=== PATIENT | male | born 1975 | race Caucasian/White ===

== ENCOUNTER 2017-11-12 10:38 | Emergency (ER) | payer OTHER, BC ==
[2017-11-12 11:05] VITALS: BP 131/71
[2017-11-12] MEDS ORDERED: Sodium Chloride 0.9% 2.5 ML Syringe FLUSH PRN (11:26)
[2017-11-12] MEDS ORDERED: Sodium Chloride 0.9% 10 ML Syringe FLUSH PRN (11:26)
--- NOTE | 2017-11-12 11:26 | EDM.PDOC ---
ED HPI GENERAL MEDICAL PROBLEM - General Chief Complaint: Skin Complaint Stated Complaint: PATIENT BITTEN BY SOMETHING. Time Seen by Provider: 11/12/17 10:45 Source of Information: Reports: Patient History Limitations: Reports: No Limitations - History of Present Illness INITIAL COMMENTS - FREE TEXT/NARRATIVE: HISTORY AND PHYSICAL: History of present illness: [Jono is a 42-year male who presents to the ER today for right groin pain and a bug bite on his right leg. He states that the bite occurred about 1 month ago while he was in [facility] for 10 days on a mission trip. Since then, the bite has persisted and has had minimal drainage daily. He did not see what had bit him and states he had several other bites that have since resolved. He says the bite is on his right lower leg and is not painful. He states that yesterday he began to have right groin pain that he rates a 9/10 pain, burning, and constant and is worried that it is related to the bite. He says he also feels that he is having fever and chills off and on since last night and feels exhausted this morning. While in [facility], he denies exposure to any other blood products. He denies any sexual partners other than his . He denies weight changes, blurry vision, cough, sore throat, dizziness, abdominal pain, diarrhea, nausea, vomiting, headache, or syncope. Furthermore, he denies trauma to his hip or groin. He denies numbness, burning, tingling, or muscle weakness of the right leg. ] Review of systems: As per history of present illness and below otherwise all systems reviewed and negative. Past medical history: As per history of present illness and as reviewed below otherwise noncontributory. Surgical history: As per history of present illness and as reviewed below otherwise noncontributory. Social history: No reported history of drug or alcohol abuse. Family history: As per history of present illness and as reviewed below otherwise noncontributory. Physical exam: General: Patient lying comfortable in no acute distress HEENT: Conjuctiva injected bilaterally. Atraumatic, normocephalic, pupils reactive, negative for conjunctival pallor or scleral icterus, mucous membranes moist, throat clear, neck supple, nontender, trachea midline. Lungs: Clear to auscultation, breath sounds equal bilaterally, chest nontender. Heart: S1S2, regular, negative for clicks, rubs, Abdomen: Soft, nondistended, nontender. Negative for costovertebral tenderness. Pelvis: Stable nontender. Genitourinary: Skin intact, no lesions noted. No testicular swelling. Mild tenderness to palpation of the right testicle. No erythema. Normal cremaster reflex. Rectal: Deferred. Skin: There is a a 0.5cm lesion on the right medial lower leg. There is some mild erythema and warmth of the anterior leg. Extremities: Tender to palpation of the right groin, no LAD noted. Pain with flexion of the right hip. CMS intact distally. Atraumatic, negative for cords or calf pain. Neurovascular unremarkable. Neuro: Awake, alert, oriented. Cranial nerves II through XII unremarkable. Cerebellum unremarkable. Motor and sensory unremarkable throughout. Exam nonfocal. Notes: Diagnostics: [CBC, CMP, peripheral smear, UA, urine gonorrhea/chlamydia Scrotal duplex US X-ray right hip] Therapeutics: [IM ceftriaxone 250mg 1g azithromycin Bactrim DS BID x 10 days] Impression: [Epididymitis] Plan: [#1 Take antibiotic as directed #2 Follow up with PCP #3 Return to ED as needed as discussed] Definitive disposition and diagnosis as appropriate pending reevaluation and review of above. right groin Pain Score (Numeric/FACES): 9 - Related Data Allergies Allergy/AdvReac Type Severity Reaction Status Date / Time No Known Allergies Allergy Verified 11/12/17 10:58 Home Meds: Home Meds . [No Known Home Meds] 11/12/17 [History] Past Medical History Other Respiratory History: respiratory infection - Infectious Disease History Infectious Disease History: Reports: Chicken Pox - Past Surgical History GI Surgical History: Reports: Colonoscopy Other Male Surgeries/Procedures: vasectomy Musculoskeletal Surgical History: Reports: Shoulder Surgery Other Musculoskeletal Surgeries/Procedures:: knee surgery Social & Family History - Family History Family Medical History: Noncontributory - Tobacco Use Smoking Status *Q: Never Smoker - Recreational Drug Use Recreational Drug Use: No ED ROS GENERAL - Review of Systems Review Of Systems: ROS reveals no pertinent complaints other than HPI. ED EXAM, SKIN/RASH Exam: See Below (see dictation) Course - Vital Signs Last Recorded V/S: Last Vital Signs Temp 37.9 C 11/12/17 10:58 Pulse 95 11/12/17 10:58 Resp 20 11/12/17 10:58 BP 131/71 11/12/17 10:58 Pulse Ox 99 11/12/17 10:58 - Orders/Labs/Meds Orders: Active Orders 24 hr Category Date Time Status Hip Min 2V or 3V Rt [CR] Stat Exams 11/12/17 11:20 Taken Scrotal Duplex Ltd [US] Stat Exams 11/12/17 11:08 Taken Scrotum and Contents [US] Routine Exams 11/12/17 Taken URINALYSIS W/MICROSCOPIC [UA W/MICROSCOPIC] [URIN] Stat Lab 11/12/17 11:05 Ordered Sodium Chloride 0.9% [Saline Flush] Med 11/12/17 11:26 Active 10 ml FLUSH ASDIRECTED PRN Sodium Chloride 0.9% [Saline Flush] Med 11/12/17 11:26 Active 2.5 ml FLUSH ASDIRECTED PRN Saline Lock Insert [OM.PC] Stat Oth 11/12/17 11:26 Ordered Medication Orders Sodium Chloride (Saline Flush) 10 ml FLUSH ASDIRECTED PRN PRN Reason: Keep Vein Open Sodium Chloride (Saline Flush) 2.5 ml FLUSH ASDIRECTED PRN PRN Reason: Keep Vein Open Labs: Laboratory Tests 11/12/17 11/12/17 11/12/17 Range/Units 11:05 11:30 11:30 WBC 12.31 H (4.0-11.0) K/uL RBC 5.49 (4.50-5.90) M/uL Hgb 16.4 (13.0-17.0) g/dL Hct 45.6 (38.0-50.0) % MCV 83.1 (80.0-98.0) fL MCH 29.9 (27.0-32.0) pg MCHC 36.0 (31.0-37.0) g/dL RDW Std Deviation 39.1 (28.0-62.0) fl RDW Coeff of [place] 13 (11.0-15.0) % Plt Count 177 (150-400) K/uL MPV 9.80 (7.40-12.00) fL Neut % (Auto) 90.8 H (48.0-80.0) % Lymph % (Auto) 6.3 L (16.0-40.0) % [place] % (Auto) 2.6 (0.0-15.0) % Eos % (Auto) 0.2 (0.0-7.0) % Baso % (Auto) 0.1 (0.0-1.5) % Neut # (Auto) 11.2 H (1.4-5.7) K/uL Lymph # (Auto) 0.8 (0.6-2.4) K/uL [place] # (Auto) 0.3 (0.0-0.8) K/uL Eos # (Auto) 0.0 (0.0-0.7) K/uL Baso # (Auto) 0.0 (0.0-0.1) K/uL Nucleated RBC % 0.0 /100WBC Nucleated RBCs # 0 K/uL Smear Path Review Sodium 139 (136-148) mmol/L Potassium 3.9 (3.5-5.1) mmol/L Chloride 104 (98-107) mmol/L Carbon Dioxide 30.4 (21.0-32.0) mmol/L BUN 12 (7.0-18.0) mg/dL Creatinine 1.2 (0.8-1.3) mg/dL Est Cr Clr Drug Dosing 81.01 mL/min Estimated GFR (MDRD) > 60.0 ml/min Glucose 103 (74-106) mg/dL Calcium 8.5 (8.5-10.1) mg/dL Total Bilirubin 0.6 (0.2-1.0) mg/dL AST 19 (15-37) IU/L ALT 38 (14-63) IU/L Alkaline Phosphatase 67 (46-116) U/L Total Protein 7.3 (6.4-8.2) g/dL Albumin 4.0 (3.4-5.0) g/dL Globulin 3.3 (2.0-3.5) g/dL Albumin/Globulin Ratio 1.2 L (1.3-2.8) Urine Color YELLOW Urine Appearance CLEAR Urine pH 5.5 (5.0-8.0) Ur Specific [place] >= 1.030 (1.001-1.035) Urine Protein NEGATIVE (NEGATIVE) mg/dL Urine Glucose (UA) NEGATIVE (NEGATIVE) mg/dL Urine Ketones NEGATIVE (NEGATIVE) mg/dL Urine Occult Blood NEGATIVE (NEGATIVE) Urine Nitrite NEGATIVE (NEGATIVE) Urine Bilirubin NEGATIVE (NEGATIVE) Urine Urobilinogen 0.2 (<2.0) EU/dL Ur Leukocyte Esterase NEGATIVE (NEGATIVE) Urine RBC 0-1 (0-2/HPF) Urine WBC 0-2 (0-5/HPF) Ur Epithelial Cells RARE (NONE-FEW) Urine Bacteria RARE (NEGATIVE) 11/12/17 Range/Units 11:30 WBC (4.0-11.0) K/uL RBC (4.50-5.90) M/uL Hgb (13.0-17.0) g/dL Hct (38.0-50.0) % MCV (80.0-98.0) fL MCH (27.0-32.0) pg MCHC (31.0-37.0) g/dL RDW Std Deviation (28.0-62.0) fl RDW Coeff of [place] (11.0-15.0) % Plt Count (150-400) K/uL MPV (7.40-12.00) fL Neut % (Auto) (48.0-80.0) % Lymph % (Auto) (16.0-40.0) % [place] % (Auto) (0.0-15.0) % Eos % (Auto) (0.0-7.0) % Baso % (Auto) (0.0-1.5) % Neut # (Auto) (1.4-5.7) K/uL Lymph # (Auto) (0.6-2.4) K/uL [place] # (Auto) (0.0-0.8) K/uL Eos # (Auto) (0.0-0.7) K/uL Baso # (Auto) (0.0-0.1) K/uL Nucleated RBC % /100WBC Nucleated RBCs # K/uL Smear Path Review SENT TO PATHOLOGY Sodium (136-148) mmol/L Potassium (3.5-5.1) mmol/L Chloride (98-107) mmol/L Carbon Dioxide (21.0-32.0) mmol/L BUN (7.0-18.0) mg/dL Creatinine (0.8-1.3) mg/dL Est Cr Clr Drug Dosing mL/min Estimated GFR (MDRD) ml/min Glucose (74-106) mg/dL Calcium (8.5-10.1) mg/dL Total Bilirubin (0.2-1.0) mg/dL AST (15-37) IU/L ALT (14-63) IU/L Alkaline Phosphatase (46-116) U/L Total Protein (6.4-8.2) g/dL Albumin (3.4-5.0) g/dL Globulin (2.0-3.5) g/dL Albumin/Globulin Ratio (1.3-2.8) Urine Color Urine Appearance Urine pH (5.0-8.0) Ur Specific [place] (1.001-1.035) Urine Protein (NEGATIVE) mg/dL Urine Glucose (UA) (NEGATIVE) mg/dL Urine Ketones (NEGATIVE) mg/dL Urine Occult Blood (NEGATIVE) Urine Nitrite (NEGATIVE) Urine Bilirubin (NEGATIVE) Urine Urobilinogen (<2.0) EU/dL Ur Leukocyte Esterase (NEGATIVE) Urine RBC (0-2/HPF) Urine WBC (0-5/HPF) Ur Epithelial Cells (NONE-FEW) Urine Bacteria (NEGATIVE) Meds: Medications Generic Name Dose Route Start Last Admin Trade Name Freq PRN Reason Stop Dose Admin Sodium Chloride 10 ml 11/12/17 11:26 Saline Flush FLUSH ASDIRECTED PRN Keep Vein Open Sodium Chloride 2.5 ml 11/12/17 11:26 Saline Flush FLUSH ASDIRECTED PRN Keep Vein Open Discontinued Medications Generic Name Dose Route Start Last Admin Trade Name Freq PRN Reason Stop Dose Admin Azithromycin 1,000 mg 11/12/17 12:36 Zithromax PO 11/12/17 12:37 ONETIME ONE Ceftriaxone Sodium 250 mg/ 1 mls @ 1 mls/sec 11/12/17 12:35 Lidocaine HCl IM 11/12/17 12:36 ONETIME ONE Departure - Departure Time of Disposition: 13:20 Disposition: Home, Self-Care 01 Condition: Good Clinical Impression: Epididymitis - Discharge Information Instructions: Insect Bite, Adult, [id number] Referrals: Oren Malik MD [Primary Care Provider] - Forms: ED Department Discharge Additional Instructions: The following information is given to patients seen in the emergency department who are being discharged to home. This information is to outline your options for follow-up care. We provide all patients seen in our emergency department with a follow-up referral. The need for follow-up, as well as the timing and circumstances, are variable depending upon the specifics of your emergency department visit. If you don't have a primary care physician on staff, we will provide you with a referral. We always advise you to contact your personal physician following an emergency department visit to inform them of the circumstance of the visit and for follow-up with them and/or the need for any referrals to a consulting specialist. The emergency department will also refer you to a specialist when appropriate. This referral assures that you have the opportunity for follow-up care with a specialist. All of these measure are taken in an effort to provide you with optimal care, which includes your follow-up. Under all circumstances we always encourage you to contact your private physician who remains a resource for coordinating your care. When calling for follow-up care, please make the office aware that this follow-up is from your recent emergency room visit. If for any reason you are refused follow-up, please contact the [facility] Emergency Department at and asked to speak to the emergency department charge nurse. [facility] [address] [place] [address] #1 Take antibiotic as directed #2 Follow up with PCP #3 Return to ED as needed as discussed - My Orders Last 24 Hours: My Active Orders 11/12/17 11:05 URINALYSIS W/MICROSCOPIC [UA W/MICROSCOPIC] [URIN] Stat 11/12/17 11:08 Scrotal Duplex Ltd [US] Stat 11/12/17 11:20 Hip Min 2V or 3V Rt [CR] Stat 11/12/17 11:26 Sodium Chloride 0.9% [Saline Flush] 10 ml FLUSH ASDIRECTED PRN Sodium Chloride 0.9% [Saline Flush] 2.5 ml FLUSH ASDIRECTED PRN Saline Lock Insert [OM.PC] Stat - Assessment/Plan Last 24 Hours: My Active Orders 11/12/17 11:05 URINALYSIS W/MICROSCOPIC [UA W/MICROSCOPIC] [URIN] Stat 11/12/17 11:08 Scrotal Duplex Ltd [US] Stat 11/12/17 11:20 Hip Min 2V or 3V Rt [CR] Stat 11/12/17 11:26 Sodium Chloride 0.9% [Saline Flush] 10 ml FLUSH ASDIRECTED PRN Sodium Chloride 0.9% [Saline Flush] 2.5 ml FLUSH ASDIRECTED PRN Saline Lock Insert [OM.PC] Stat
[2017-11-12 11:59] LABS: CHLORIDE,CL 104 mmol/L (98-107); SODIUM,NA 139 mmol/L (136-148)
[2017-11-12] MEDS ORDERED: cefTRIAXone 250 MG in Lidocaine 1% 1 ML IM ONE (12:35)
[2017-11-12] MEDS ORDERED: Azithromycin 250 MG Tab PO ONE (12:36)
--- NOTE | 2017-11-13 10:06 | CR ---
EXAM DATE: 11/12/17 PATIENT'S AGE: 42 Patient: SUSAN BHAKTA Facility: [place], [place] Site . Site : 1975 Study: XRay Pelvis Right HIP [id number] 12:03:54 PM Ordering Physician: Doctor Velasco Final Report: HISTORY: Right groin pain 2 views of the right hip. FINDINGS: Normal alignment. No fractures. No acute osseous abnormalities. Dictated by Helen Daniels MD @ Nov 12 2017 12:11PM (Electronic Signature) Report Signed by Proxy. ISRAEL
--- NOTE | 2017-11-13 10:08 | US ---
EXAM DATE: 11/12/17 PATIENT'S AGE: 42 Patient: SUSAN BHAKTA Facility: [place], [place] Site . Site : 1975 Study: US Testicle [id number]/4/2018 12:41:48 PM Ordering Physician: Doctor Velasco Final Report: Indication: Groin pain Technique: Ultrasound of the scrotum and contents. Sonographic walker-scale images were obtained with spectral and color Doppler waveform and spectral waveform analysis of the testicles. Comparison: None Findings: Bother testicles are normal in size and echotexture. No masses. No suspicious calcifications. Normal arterial and venous color Doppler blood flow and spectral waveforms are present in both testicles. Epididymis: Unremarkable bilaterally. Normal blood flow. Other: There are trace hydroceles. No sign of varicocele. Scrotal wall is normal. Multiple minimally enlarged lymph nodes are present in the right inguinal region. Impression: Mild right inguinal lymphadenopathy. Trace bilateral hydroceles. Otherwise unremarkable ultrasound of the scrotum and contents. No sign of torsion. Dictated by Sigifredo Ro MD @ Nov 12 2017 12:58PM (Electronic Signature) Report Signed by Proxy. ISRAEL
--- NOTE | 2017-11-13 10:09 | US ---
EXAM DATE: 11/12/17 PATIENT'S AGE: 42 Patient: SUSAN BHAKTA Facility: [place], [place] Site . Site : 1975 Study: US Testicle [id number]/4/2018 12:41:48 PM Ordering Physician: Doctor Velasco Final Report: Indication: Groin pain Technique: Ultrasound of the scrotum and contents. Sonographic walker-scale images were obtained with spectral and color Doppler waveform and spectral waveform analysis of the testicles. Comparison: None Findings: Bother testicles are normal in size and echotexture. No masses. No suspicious calcifications. Normal arterial and venous color Doppler blood flow and spectral waveforms are present in both testicles. Epididymis: Unremarkable bilaterally. Normal blood flow. Other: There are trace hydroceles. No sign of varicocele. Scrotal wall is normal. Multiple minimally enlarged lymph nodes are present in the right inguinal region. Impression: Mild right inguinal lymphadenopathy. Trace bilateral hydroceles. Otherwise unremarkable ultrasound of the scrotum and contents. No sign of torsion. Dictated by Sigifredo Ro MD @ Nov 12 2017 12:58PM (Electronic Signature) Report Signed by Proxy. ISRAEL
== END 2017-11-12 13:37 | disposition home or self-care (01) ==
LOC: MW.ED 10:38
DX: N45.1 Epididymitis (principal)
CPT/HCPCS: 36415; 73502; 76870; 80053; 81001; 85025; 87491; 87591; 88104; 93976; 96372; 99284; A9270; J0696; J2001

== ENCOUNTER 2020-07-25 09:34 | Emergency (ER) | payer OTHER, BC ==
[2020-07-25 10:06] VITALS: BP 135/80; PULSE 81
[2020-07-25] MEDS ORDERED: Sodium Chloride 0.9% 1,000 ML IV STA (10:17)
[2020-07-25] MEDS ORDERED: Ketorolac 30 MG/ML SDV IVPUSH ONE (10:18)
[2020-07-25] MEDS ORDERED: Sodium Chloride 0.9% 2.5 ML Syringe FLUSH PRN (10:20)
[2020-07-25] MEDS ORDERED: Sodium Chloride 0.9% 10 ML Syringe FLUSH PRN (10:20)
--- NOTE | 2020-07-25 10:31 | EDM.PDOC ---
ED HPI GENERAL MEDICAL PROBLEM - General Chief Complaint: Back Pain or Injury Stated Complaint: LOWER BACK PAIN Time Seen by Provider: 07/25/20 10:10 Source of Information: Reports: Patient History Limitations: Reports: No Limitations - History of Present Illness INITIAL COMMENTS - FREE TEXT/NARRATIVE: HISTORY AND PHYSICAL: History of present illness: The patient is a 45-year-old male who presents to the ED with lower back pain, right CVA and flank pain, which started yesterday while he was getting dressed. He has been using heat and ice for pain relief. He states that his left foot felt numb. Denies any weakness of the right lower extremity. On Friday he went to the chiropractor, however, not receive relief after his treatment. He has used acetaminophen and Flexeril without pain relief. He has never experienced pain like this before. He required assistance getting out of bed and going to the bathroom this morning. Patient denies any fever, chills, headache, change in vision, syncope or near syncope. Denies any chest pain, back pain, shortness of breath or cough. Denies any abdominal pain, nausea, vomiting, diarrhea, constipation or dysuria. Has not noted any blood in urine or stool. Patient has been eating and drinking appropriately. Review of systems: As per history of present illness and below otherwise all systems reviewed and negative. Past medical history: As per history of present illness and as reviewed below otherwise noncontributory. Surgical history: As per history of present illness and as reviewed below otherwise noncontributo ry. Social history: See social history for further information Family history: As per history of present illness and as reviewed below otherwise noncontributory. Physical exam: General: Well developed and well nourished. Alert and orientated x 3. Nontoxic in appearance and in mild distress. Vital signs are stable and have been reviewed by me. Nursing notes were reviewed. HEENT: Atraumatic, normocephalic, pupils equal and reactive bilaterally, negative for conjunctival pallor or scleral icterus, mucous membranes moist, TMs normal bilaterally, throat clear, neck supple, nontender, trachea midline. No drooling or trismus noted. No meningeal signs. No hot potato voice noted. Lungs: Clear to auscultation bilaterally. No wheezes, rales, or rhonchi. Chest nontender. Normal work of breathing, no accessory muscles used. Heart: S1S2, regular rate and rhythm without overt murmur, gallops, or rubs. No JVD. No peripheral edema Abdomen: Soft, nondistended, nontender. Normoactive bowel sounds. Negative for masses. Right side costovertebral tenderness. Skin: Intact, warm, dry. No lesions or rashes noted. Hematologic: No petechiae or purpra. Mucosa appropriate color and normal nail bed color and refill. Extremities: Atraumatic, moves all extremities per self without difficulty or deficits, negative for cords or calf pain. Neurovascular unremarkable. Neuro: Awake, alert, oriented. Cranial nerves II through XII unremarkable. Cerebellum unremarkable. Motor unremarkable throughout. Right foot numbness. No weakness noted. Psychiatric: Mood and affect are appropriate. Normal thought process. Answering questions appropriately. Notes: *This patient was seen and evaluated during the 2019 SARS-CoV-2 novel coronavirus pandemic period. Community viral transmission is ongoing at time of this encounter and the emergency department is operating under pandemic response procedures. The patient presented with initial complaint of back pain, after examination noted CVA tenderness and right flank pain. Discussed treatment plan with patient and he is agreeable we will do labs, IV fluids, a CT, and Toradol for pain control. Patient's lab work is unremarkable. There is no blood noted in the urine. States he got mild relief from the Toradol. Awaiting CT results. I have talked with the patient about today's findings, in addition to providing specific details for plan of care. Reassessment at the time of disposition demonstrates that the patient is in no acute distress. The patient is stable for discharge, counseling was provided and we discussed in great detail signs and symptoms that would prompt them to return to the Emergency Department. Medication, follow up and supportive care measures were reviewed and discussed. Voices understanding and is agreeable to plan of care. Denies any further questions or concerns at this time. CT report per the Radiologist: Nothing seen which would explain the patient`s right flank pain. Normal appearance of the right urinary system and appendix. CT of the abdomen shows a tiny nonobstructive 1 millimeter calculus in the upper pole of the left kidney.CT of the pelvis shows mild sigmoid diverticulosis with no sign of diverticulitis. I will treat patient for his lower back muscle strain with Norflex and an NSAID. Diagnostics: UA, lipase, CBC, CMP, CT Therapeutics: IV fluids, Toradol Prescription: Norflex 100mg Impression: Muscle strain Plan: 1. You were evaluated today on an emergent basis. Your lab work was essentially negative. Your CT read Nothing seen which would explain the patient`s right flank pain. Normal appearance of the right urinary system and appendix. CT of the abdomen shows a tiny nonobstructive 1 millimeter calculus in the upper pole of the left kidney. Take the Norflex 1 every 12 hours. Continue with ice and heat for comfort. 2. You can alternate Tylenol and ibuprofen as needed for pain and fever management. 3. We encourage you to follow up with your primary care provider and/or recomm ended specialist in the next few days for re-evaluation and further care/management. 4. If your symptoms should worsen, new symptoms develop or any of the signs and symptoms we discussed should arise please return to the emergency room or call 911 (if needed). Definitive disposition and diagnosis as appropriate pending reevaluation and review of above. lower back, right buttock Pain Score (Numeric/FACES): 9 - Related Data Allergies Allergy/AdvReac Type Severity Reaction Status Date / Time No Known Allergies Allergy Verified 11/12/17 10:58 Home Meds: Home Meds Cyclobenzaprine [Flexeril] 1 tab PO TID PRN 07/25/20 [History] Orphenadrine [Norflex] 100 mg PO BID PRN 10 Days #20 tab 07/25/20 [Rx] Past Medical History Other Respiratory History: respiratory infection - Infectious Disease History Infectious Disease History: Reports: Chicken Pox - Past Surgical History GI Surgical History: Reports: Colonoscopy Other Male Surgeries/Procedures: vasectomy Musculoskeletal Surgical History: Reports: Shoulder Surgery Other Musculoskeletal Surgeries/Procedures:: knee surgery ACL, R shoulder Social & Family History - Family History Family Medical History: No Pertinent Family History - Tobacco Use Tobacco Use Status *Q: Never Tobacco User - Recreational Drug Use Recreational Drug Use: No ED ROS GENERAL - Review of Systems Review Of Systems: Comprehensive ROS is negative, except as noted in HPI. ED EXAM,LOWER BACK PAIN/INJURY - Physical Exam Exam: See Below (See dictation) Course - Vital Signs Last Recorded V/S: Last Vital Signs Temp 98 F 07/25/20 10:00 Pulse 81 07/25/20 10:00 Resp 18 07/25/20 10:00 BP 135/80 07/25/20 10:00 Pulse Ox 96 07/25/20 10:00 - Orders/Labs/Meds Orders: Active Orders 24 hr Category Date Time Status Sodium Chloride 0.9% [Saline Flush] Med 07/25/20 10:20 Active 10 ml FLUSH ASDIRECTED PRN Sodium Chloride 0.9% [Saline Flush] Med 07/25/20 10:20 Active 2.5 ml FLUSH ASDIRECTED PRN Saline Lock Insert [OM.PC] Stat Oth 07/25/20 10:20 Ordered Medication Orders Sodium Chloride (Sodium Chloride 0.9% 10 Ml Syringe) 10 ml FLUSH ASDIRECTED PRN PRN Reason: Keep Vein Open Last Admin: 07/25/20 10:41 Dose: 10 ml Documented by: KURT Sodium Chloride (Sodium Chloride 0.9% 2.5 Ml Syringe) 2.5 ml FLUSH ASDIRECTED PRN PRN Reason: Keep Vein Open Last Admin: 07/25/20 10:41 Dose: 2.5 ml Documented by: KURT Labs: Laboratory Tests 07/25/20 07/25/20 07/25/20 Range/Units 10:30 10:30 10:30 WBC 6.28 (4.0-11.0) K/uL RBC 5.46 (4.50-5.90) M/uL Hgb 16.0 (13.0-17.0) g/dL Hct 45.5 (38.0-50.0) % MCV 83.3 (80.0-98.0) fL MCH 29.3 (27.0-32.0) pg MCHC 35.2 (31.0-37.0) g/dL RDW Std Deviation 37.2 (28.0-62.0) fl RDW Coeff of [place]ár[place] 12 (11.0-15.0) % Plt Count 228 (150-400) K/uL MPV 10.40 (7.40-12.00) fL Neut % (Auto) 56.2 (48.0-80.0) % Lymph % (Auto) 35.8 (16.0-40.0) % Snyder % (Auto) 6.4 (0.0-15.0) % Eos % (Auto) 1.4 (0.0-7.0) % Baso % (Auto) 0.2 (0.0-1.5) % Neut # (Auto) 3.5 (1.4-5.7) K/uL Lymph # (Auto) 2.3 (0.6-2.4) K/uL Snyder # (Auto) 0.4 (0.0-0.8) K/uL Eos # (Auto) 0.1 (0.0-0.7) K/uL Baso # (Auto) 0.0 (0.0-0.1) K/uL Nucleated RBC % 0.0 /100WBC Nucleated RBCs # 0 K/uL Sodium 138 (136-148) mmol/L Potassium 3.9 (3.5-5.1) mmol/L Chloride 102 (98-107) mmol/L Carbon Dioxide 26.3 (21.0-32.0) mmol/L BUN 16 (7.0-18.0) mg/dL Creatinine 1.1 (0.8-1.3) mg/dL Est Cr Clr Drug Dosing 85.70 mL/min Estimated GFR (MDRD) > 60.0 ml/min Glucose 88 (74-106) mg/dL Calcium 8.5 (8.5-10.1) mg/dL Total Bilirubin 0.4 (0.2-1.0) mg/dL AST 21 (15-37) IU/L ALT 42 (14-63) IU/L Alkaline Phosphatase 59 (46-116) U/L Total Protein 7.5 (6.4-8.2) g/dL Albumin 3.9 (3.4-5.0) g/dL Globulin 3.6 (2.6-4.0) g/dL Albumin/Globulin Ratio 1.1 (0.9-1.6) Lipase 82 (73-393) U/L Urine Color YELLOW Urine Appearance CLEAR Urine pH 5.5 (5.0-8.0) Ur Specific [place] 1.010 (1.001-1.035) Urine Protein NEGATIVE (NEGATIVE) mg/dL Urine Glucose (UA) NEGATIVE (NEGATIVE) mg/dL Urine Ketones NEGATIVE (NEGATIVE) mg/dL Urine Occult Blood NEGATIVE (NEGATIVE) Urine Nitrite NEGATIVE (NEGATIVE) Urine Bilirubin NEGATIVE (NEGATIVE) Urine Urobilinogen 0.2 (<2.0) EU/dL Ur Leukocyte Esterase NEGATIVE (NEGATIVE) Meds: Medications Generic Name Dose Route Start Last Admin Trade Name Freq PRN Reason Stop Dose Admin Sodium Chloride 10 ml 07/25/20 10:20 07/25/20 10:41 Sodium Chloride 0.9% 10 Ml Syringe FLUSH 10 ml ASDIRECTED PRN Administration Keep Vein Open Sodium Chloride 2.5 ml 07/25/20 10:20 07/25/20 10:41 Sodium Chloride 0.9% 2.5 Ml Syringe FLUSH 2.5 ml ASDIRECTED PRN Administration Keep Vein Open Discontinued Medications Generic Name Dose Route Start Last Admin Trade Name Freq PRN Reason Stop Dose Admin Sodium Chloride 1,000 mls @ 999 mls/hr 07/25/20 10:17 07/25/20 10:39 Normal Saline IV 07/25/20 11:17 999 mls/hr .Bolus STA Administration Ketorolac Tromethamine 30 mg 07/25/20 10:18 07/25/20 10:39 Ketorolac 30 Mg/Ml Sdv IVPUSH 07/25/20 10:19 30 mg ONETIME ONE Administration Departure - Departure Time of Disposition: 12:50 Disposition: Home, Self-Care 01 Condition: Good Clinical Impression: Muscle strain - Discharge Information *PRESCRIPTION DRUG MONITORING PROGRAM REVIEWED*: Not Applicable *COPY OF PRESCRIPTION DRUG MONITORING REPORT IN PATIENT RUBEN: Not Applicable Prescriptions: Orphenadrine [Norflex] 100 mg PO BID PRN 10 Days #20 tab PRN Reason: Muscle Spasm Instructions: Muscle Strain, [id number] Referrals: Getachew Sanchez COST ESTIMATOR [Primary Care Provider] - Forms: ED Department Discharge Additional Instructions: The following information is given to patients seen in the emergency department who are being discharged to home. This information is to outline your options for follow-up care. We provide all patients seen in our emergency department with a follow-up referral. The need for follow-up, as well as the timing and circumstances, are variable depending upon the specifics of your emergency department visit. If you don't have a primary care physician on staff, we will provide you with a referral. We always advise you to contact your personal physician following an emergency department visit to inform them of the circumstance of the visit and for follow-up with them and/or the need for any referrals to a consulting specialist. The emergency department will also refer you to a specialist when appropriate. This referral assures that you have the opportunity for follow-up care with a specialist. All of these measure are taken in an effort to provide you with optimal care, which includes your follow-up. Under all circumstances we always encourage you to contact your private physician who remains a resource for coordinating your care. When calling for follow-up care, please make the office aware that this follow-up is from your recent emergency room visit. If for any reason you are refused follow-up, please contact the [facility] Emergency Department at and asked to speak to the emergency department charge nurse. Plan: 1. You were evaluated today on an emergent basis. Your lab work was essentially negative. Your CT read Nothing seen which would explain the patient`s right flank pain. Normal appearance of the right urinary system and appendix. CT of the abdomen shows a tiny nonobstructive 1 millimeter calculus in the upper pole of the left kidney. Take the Norflex 1 every 12 hours. Continue with ice and heat for comfort. 2. You can alternate Tylenol and ibuprofen as needed for pain and fever management. 3. We encourage you to follow up with your primary care provider and/or recommended specialist in the next few days for re-evaluation and further care/management. 4. If your symptoms should worsen, new symptoms develop or any of the signs and symptoms we discussed should arise please return to the emergency room or call 911 (if needed). [facility] - Primary Care [address] [place] [address] [place] [address] Sepsis Event Note (ED) - Evaluation Sepsis Screening Result: No Definite Risk - Focused Exam Vital Signs: Vital Signs Temp Pulse Resp BP Pulse Ox 07/25/20 10:00 98 F 81 18 135/80 96 - My Orders Last 24 Hours: My Active Orders 07/25/20 10:20 Sodium Chloride 0.9% [Saline Flush] 10 ml FLUSH ASDIRECTED PRN Sodium Chloride 0.9% [Saline Flush] 2.5 ml FLUSH ASDIRECTED PRN Saline Lock Insert [OM.PC] Stat - Assessment/Plan Last 24 Hours: My Active Orders 07/25/20 10:20 Sodium Chloride 0.9% [Saline Flush] 10 ml FLUSH ASDIRECTED PRN Sodium Chloride 0.9% [Saline Flush] 2.5 ml FLUSH ASDIRECTED PRN Saline Lock Insert [OM.PC] Stat
[2020-07-25 11:19] LABS: BLOOD UREA NITROGEN,BUN 16 mg/dL (7.0-18.0); CARBON DIOXIDE,CO2 26.3 mmol/L (21.0-32.0); CHLORIDE,CL 102 mmol/L (98-107); GLUCOSE RANDOM 88 mg/dL (74-106); LIPASE 82 U/L (73-393); POTASSIUM,K 3.9 mmol/L (3.5-5.1); SODIUM,NA 138 mmol/L (136-148)
--- NOTE | 2020-07-25 12:15 | CT ---
INDICATION: Right flank pain. COMPARISON: None available TECHNIQUE: CT examination of the abdomen and pelvis was performed without contrast enhancement using 2.5 mm thick axial sections from the lung bases through the pubic symphysis. Oral contrast was not administered. Please note that all CT scans at this facility use dose modulation, iterative reconstruction, and/or weight-based dosing when appropriate to reduce radiation dose to as low as reasonably achievable. FINDINGS: In the abdomen, the unenhanced liver, spleen, pancreas, and adrenals are normal in appearance. There is a tiny 1 millimeter nonobstructive calculus in the upper pole of the left kidney. There is no sign of any additional renal or ureteral calculi on either side. There is no sign of hydronephrosis or hydroureter. The unenhanced kidneys are otherwise normal in appearance. The gallbladder is normal in appearance. The abdominal aorta is normal in caliber with no sign of dilatation. There is no sign of retroperitoneal mass or adenopathy. The stomach, loops of small bowel, and colon in the abdomen are normal in appearance. There is a tiny fat containing periumbilical hernia. In the pelvis, the appendix is normal in appearance with no sign of inflammatory process. There is mild sigmoid diverticulosis without evidence of diverticulitis. The loops of small bowel and colon in the pelvis are otherwise normal in appearance. The prostate is normal in appearance. The urinary bladder is normal in appearance. There is no sign of pelvic or inguinal mass or adenopathy. There is no sign of free air or free fluid in the abdomen or pelvis. The lung bases are clear. There is moderate L5-S1 disc degenerative disease. The osseous structures are otherwise normal in appearance for the patient`s age. IMPRESSION: Nothing seen which would explain the patient`s right flank pain. Normal appearance of the right urinary system and appendix. CT of the abdomen shows a tiny nonobstructive 1 millimeter calculus in the upper pole of the left kidney. CT of the pelvis shows mild sigmoid diverticulosis with no sign of diverticulitis. Please note that all CT scans at this facility use dose modulation, iterative reconstruction, and/or weight-based dosing when appropriate to reduce radiation dose to as low as reasonably achievable. Dictated by Arash Malhotra MD @ Jul 25 2020 12:06PM Signed by Dr. Arash Malhotra @ Jul 25 2020 12:13PM
== END 2020-07-25 13:01 | disposition home or self-care (01) ==
LOC: MW.ED 09:34
DX: S39.012A Strain of muscle, fascia and tendon of lower back, initial encounter (principal); R20.0 Anesthesia of skin; Z79.899 Other long term (current) drug therapy; X58.XXXA Exposure to other specified factors, initial encounter
CPT/HCPCS: 36415; 74176; 80053; 81003; 83690; 85025; 96374; 99284; J1885; J7030; 99283

== ENCOUNTER 2022-11-13 23:09 | Emergency (ER) | payer BC ==
[2022-11-14] MEDS ORDERED: Famotidine 20 MG Tab PO ONE (00:40)
[2022-11-14 02:37] VITALS: BP 132/75; PULSE 65
== END 2022-11-14 02:35 | disposition home or self-care (01) ==
LOC: MW.ED 23:09
DX: L50.0 Allergic urticaria (principal); Z88.1 Allergy status to other antibiotic agents
CPT/HCPCS: 99282; A9270

== ENCOUNTER 2022-11-18 17:01 | Emergency (ER) | payer BC ==
[2022-11-18] MEDS ORDERED: Sodium Chloride 0.9% 10 ML Syringe FLUSH PRN (18:03)
[2022-11-18] MEDS ORDERED: Sodium Chloride 0.9% 2.5 ML Syringe FLUSH PRN (18:03)
[2022-11-18 18:41] LABS: BASOPHILS PERCENT AUTO 0.1 % (0.0-1.5); EOSINOPHILS ABSOLUTE AUTO 0.2 K/uL (0.0-0.7); EOSINOPHILS PERCENT AUTO 1.9 % (0.0-7.0); HEMATOCRIT 44.8 % (38.0-50.0); HEMOGLOBIN 16.2 g/dL (13.0-17.0); LYMPHOCYTES ABSOLUTE AUTO 2.2 K/uL (0.6-2.4); LYMPHOCYTES PERCENT AUTO 24.9 % (16.0-40.0); MEAN CORPUSCULAR HEMOGLOBIN 30.5 pg (27.0-32.0); MEAN CORPUSCULAR HGB CONC 36.2 g/dL (31.0-37.0); MEAN CORPUSCULAR VOLUME 84.4 fL (80.0-98.0); MONOCYTES ABSOLUTE AUTO 0.4 K/uL (0.0-0.8); MONOCYTES PERCENT AUTO 4.9 % (0.0-15.0); NEUTROPHILS ABSOLUTE AUTO 5.9 K/uL (1.4-5.7); NEUTROPHILS PERCENT AUTO 68.2 % (48.0-80.0); PLATELET COUNT,PLT 228 K/uL (150-400); RED BLOOD CELL COUNT 5.31 M/uL (4.50-5.90); WHITE BLOOD CELL COUNT,WBC 8.64 K/uL (4.0-11.0)
[2022-11-18 19:09] LABS: A/G RATIO 1.3 (0.9-1.6); ALANINE AMINOTRANSFERASE,ALT 49 IU/L (14-63); ALBUMIN 3.9 g/dL (3.4-5.0); ALKALINE PHOSPHATASE 60 U/L (46-116); ASPARTATE AMNIOTRANSFERASE,AST 18 IU/L (15-37); BILIRUBIN TOTAL 0.4 mg/dL (0.2-1.0); BLOOD UREA NITROGEN,BUN 15 mg/dL (7.0-18.0); CALCIUM 8.3 mg/dL (8.5-10.1); CARBON DIOXIDE,CO2 29.1 mmol/L (21.0-32.0); CHLORIDE,CL 103 mmol/L (98-107); CREATININE 1.1 mg/dL (0.8-1.3); EST CRCL DRUG DOSING (CG) 83.91 mL/min; GLUCOSE RANDOM 90 mg/dL (74-106); LIPASE 70 U/L (73-393); POTASSIUM,K 3.9 mmol/L (3.5-5.1); SODIUM,NA 139 mmol/L (136-148)
[2022-11-18 19:20] LABS: ESTIMATED GFR 84 mL/min (>60)
[2022-11-18] MEDS ORDERED: diphenhydrAMINE 50 MG/ML SDV IVPUSH ONE (19:34)
[2022-11-18] MEDS ORDERED: Aluminum Hydroxide/Magnesium Hydroxide/Simethicone XS Susp 30 ML Cup PO ONE (20:07)
[2022-11-18] MEDS ORDERED: Iopamidol 755 MG/ML 500 ML Multipack Bottle IVPUSH ONE (20:18)
[2022-11-19] MEDS ORDERED: Calcium Carbonate 500 MG Tab.Chew PO ONE (00:17)
[2022-11-19 01:04] VITALS: BP 122/71; PULSE 72
== END 2022-11-19 01:17 | disposition home or self-care (01) ==
LOC: MW.ED 17:01
DX: T78.40XA Allergy, unspecified, initial encounter (principal); R07.9 Chest pain, unspecified; Z88.1 Allergy status to other antibiotic agents
CPT/HCPCS: 36415; 71045; 71275; 80053; 83690; 84484; 85025; 85379; 93005; 96374; 99285; A9270; J1200; J3490; Q9967; 93010; 99284